=== PATIENT | male | born 1980 | race Caucasian/White ===

== ENCOUNTER → 2020-07-29 | Emergency (ER) | payer OTHER ==
[~2020-07-29] VITALS: Ht 175.3 cm; Wt 73.7 kg
[~2020-07-29] MED LIST: ACETAMINOPHEN 500 MG TABLET PO ONE; ALBUTEROL SULFATE HFA 90 MCG/PUFF 8 GM INHALER IH ONE; OLAN10TA3 PO; SERT100T12 PO; TRAZ-257 PO
[2020-07-29 20:26] LABS: BASOPHILS % (AUTO) 0.6 % (0.0-2.0); EOSINOPHILS % (AUTO) 3.9 % (1.0-6.0); HEMATOCRIT 39.5 % (41-53); HEMOGLOBIN 13.3 g/dL (13.5-17.5); LYMPHOCYTES # (AUTO) 2.7 K/uL (1.0-4.8); LYMPHOCYTES % (AUTO) 27.7 % (22.0-44.0); MEAN CORPUSCULAR HEMOGLOBIN 29.9 pg (26.0-34.0); MEAN CORPUSCULAR HGB CONC 33.6 G/dL (31.0-37.0); MEAN CORPUSCULAR VOLUME 89 fL (80-100); MONOCYTES # (AUTO) 0.8 K/uL (0.1-1.0); MONOCYTES % (AUTO) 7.9 % (2.0-9.0); NEUTROPHILS # (AUTO) 5.8 K/uL (1.8-7.7); NEUTROPHILS % (AUTO) 59.9 % (40.0-70.0); PLATELET COUNT (AUTO) 277 K/uL (150-450); RED BLOOD CELL COUNT(AUTO) 4.45 MIL/uL (4.50-5.90); RED CELL DISTRIBUTION WIDTH 13.7 % (11.5-14.5)
[2020-07-29 20:34] LABS: ANION GAP 6 mmol/L (8-16); CARBON DIOXIDE 27 mmol/L (22-29); CHLORIDE 105 mmol/L (98-107); CREATININE 0.93 mg/dL (0.60-1.30); GLOMERULAR FILTR. RATE CALC > 60 mL/min (>60); GLUCOSE,RANDOM 83 mg/dL (70-110); POTASSIUM 3.6 mmol/L (3.5-5.1); SODIUM SERUM 138 mmol/L (136-145); UREA NITROGEN, BLOOD 16 mg/dL (7-18)
[2020-07-29 20:40] LABS: ALANINE AMINOTRANSFERASE 64 U/L (12-78); ALBUMIN 3.3 g/dL (3.4-5.0); ALKALINE PHOSPHATASE 68 U/L (46-116); ASPARTATE AMINOTRANSFERASE 17 U/L (15-37); BILIRUBIN,TOTAL 0.2 mg/dL (0.1-1.0); CREATINE KINASE, TOTAL ONLY 24 U/L (39-308); TOTAL PROTEIN, SERUM 6.4 g/dL (6.4-8.2)
[2020-07-29 20:43] LABS: PROTHROMBIN TIME 10.4 SEC (9.4-11.6)
[2020-07-29 21:14] LABS: B-TYPE NATRIURETIC PEPTIDE 17 pg/mL (0-100)
[2020-07-30 06:00] VITALS: BP 96/67
== END | disposition home or self-care (01) ==
LOC: EMS 20:03
DX: R07.9 Chest pain, unspecified (principal); R45.851 Suicidal ideations; R06.02 Shortness of breath; F41.9 Anxiety disorder, unspecified; F32.9 Major depressive disorder, single episode, unspecified; J45.909 Unspecified asthma, uncomplicated; F17.210 Nicotine dependence, cigarettes, uncomplicated
CPT/HCPCS: 93005; 94640; J3535; 36415-L1; 36415-TC; 71045-TC

== ENCOUNTER 2020-07-30 07:35 | Inpatient (IN) | payer MEDICAID, OTHER ==
[~2020-07-30] VITALS: Ht 177.8 cm; Wt 75.2 kg
[~2020-07-30 07:35] MED LIST changes: -ACETAMINOPHEN 500 MG TABLET PO ONE; -ALBUTEROL SULFATE HFA 90 MCG/PUFF 8 GM INHALER IH ONE
[2020-07-30 10:10] LABS: AMPHET/METH SCREEN,URINE NEGATIVE (NEGATIVE); BARBITURATE SCREEN, URINE NEGATIVE (NEGATIVE); BENZODIAZEPINES SCREEN,URINE NEGATIVE (NEGATIVE); CANNABINOID SCREEN,URINE NEGATIVE (NEGATIVE); COCAINE SCREEN,URINE NEGATIVE (NEGATIVE); METHADONE SCREEN, URINE NEGATIVE (NEGATIVE); OPIATE SCREEN,URINE NEGATIVE (NEGATIVE)
[2020-07-30 10:11] LABS: PHENCYCLIDINE SCREEN,URINE NEGATIVE (NEGATIVE)
[2020-07-30 10:15] LABS: BASOPHILS % (AUTO) 0.5 % (0.0-2.0); EOSINOPHILS % (AUTO) 5.6 % (1.0-6.0); HEMATOCRIT 43.2 % (41-53); HEMOGLOBIN 14.5 g/dL (13.5-17.5); LYMPHOCYTES % (AUTO) 34.3 % (22.0-44.0); MEAN CORPUSCULAR HEMOGLOBIN 29.8 pg (26.0-34.0); MEAN CORPUSCULAR HGB CONC 33.6 G/dL (31.0-37.0); MEAN CORPUSCULAR VOLUME 89 fL (80-100); MONOCYTES # (AUTO) 0.4 K/uL (0.1-1.0); MONOCYTES % (AUTO) 7.4 % (2.0-9.0); NEUTROPHILS # (AUTO) 3.1 K/uL (1.8-7.7); NEUTROPHILS % (AUTO) 52.2 % (40.0-70.0); PLATELET COUNT (AUTO) 291 K/uL (150-450); RED BLOOD CELL COUNT(AUTO) 4.87 MIL/uL (4.50-5.90)
[2020-07-30 10:28] LABS: ANION GAP 3 mmol/L (8-16); CALCIUM, TOTAL 9.1 mg/dL (8.8-10.5); CARBON DIOXIDE 29 mmol/L (22-29); CHLORIDE 106 mmol/L (98-107); CREATININE 0.86 mg/dL (0.60-1.30); GLOMERULAR FILTR. RATE CALC > 60 mL/min (>60); GLUCOSE,RANDOM 100 mg/dL (70-110); POTASSIUM 3.9 mmol/L (3.5-5.1); SODIUM SERUM 138 mmol/L (136-145); UREA NITROGEN, BLOOD 9 mg/dL (7-18)
[2020-07-30 10:34] LABS: ALANINE AMINOTRANSFERASE 68 U/L (12-78); ALBUMIN 3.6 g/dL (3.4-5.0); ALKALINE PHOSPHATASE 77 U/L (46-116); ASPARTATE AMINOTRANSFERASE 18 U/L (15-37); BILIRUBIN,TOTAL 0.3 mg/dL (0.1-1.0)
[2020-07-30] MEDS ORDERED: ZOLPIDEM TARTRATE 10 MG TABLET PO PRN (11:30)
[2020-07-31 01:24] VITALS: BP 104/83
[2020-07-31] MEDS ORDERED: CloNIDine HCL 0.1 MG TABLET PO PRN (07:00)
[2020-07-31] MEDS ORDERED: MAGNESIUM HYDROXIDE SUSPENSION 30 ML UDCUP PO PRN (07:00)
[2020-07-31] MEDS ORDERED: PETROLATUM,WHITE 28 GM JELLY TP PRN (07:00)
[2020-07-31] MEDS ORDERED: ALBUTEROL SULFATE HFA 90 MCG/PUFF 8 GM INHALER IH PRN (07:00)
[2020-07-31] MEDS ORDERED: LOPERAMIDE HCL 2 MG CAPSULE PO PRN (07:00)
[2020-07-31] MEDS ORDERED: OMEPRAZOLE 20 MG CAPSULE PO PRN (07:00)
[2020-07-31] MEDS ORDERED: ONDANSETRON HCL 4 MG TABLET PO PRN (07:00)
[2020-07-31] MEDS ORDERED: DOCUSATE SODIUM 100 MG CAPSULE PO PRN (07:00)
[2020-07-31] MEDS ORDERED: BACITRACIN 28 GM OINTMENT TP PRN (07:00)
[2020-07-31] MEDS ORDERED: IBUPROFEN 600 MG TABLET PO PRN (07:00)
[2020-07-31] MEDS ORDERED: MAG HYDROX/AL HYDROX/SIMETH ES 30 ML SUSPENSION UDCUP PO PRN (07:00)
[2020-07-31] MEDS ORDERED: BENZOCAINE/MENTHOL LOZENGE PO PRN (07:00)
[2020-07-31 07:21] LABS: CHOL/HDL RATIO 3.2 (4.2-7.3)
[2020-07-31 12:16] VITALS: BP 132/80
[2020-07-31 18:15] VITALS: BP 120/78
[2020-07-31 18:31] VITALS: BP 113/64
[2020-08-01 04:00] VITALS: BP 119/69
[2020-08-01 08:00] VITALS: BP 110/58
[2020-08-01] MEDS: SERTRALINE HCL 50 MG TABLET PO SCH (10:51)
[2020-08-01 16:00] VITALS: BP 121/77
[2020-08-02] MEDS: SERTRALINE HCL 50 MG TABLET PO SCH (09:00)
[2020-08-02 09:20] VITALS: BP 99/69
[2020-08-02 17:43] VITALS: BP 99/72
[2020-08-02 18:16] VITALS: BP 101/72
[2020-08-02] MEDS: ACETAMINOPHEN 325 MG TABLET PO PRN (18:16)
[2020-08-03 08:00] VITALS: BP 117/67
[2020-08-03] MEDS: SERTRALINE HCL 50 MG TABLET PO SCH (09:25)
[2020-08-03] MEDS ORDERED: TraZODone HCL 50 MG TABLET PO PRN (10:15)
[2020-08-03] MEDS: OLANZapine 10 MG TABLET PO SCH (10:24)
[2020-08-03 16:50] VITALS: BP 100/63
[2020-08-04 08:00] VITALS: BP 111/68
[2020-08-04] MEDS: SERTRALINE HCL 50 MG TABLET PO SCH (09:34)
[2020-08-04] MEDS: OLANZapine 10 MG TABLET PO SCH (09:34)
[2020-08-04 16:37] VITALS: BP 129/79
[2020-08-04] MEDS: ACETAMINOPHEN 325 MG TABLET PO PRN (17:06)
[2020-08-04 17:36] VITALS: BP 130/80
[2020-08-05 08:00] VITALS: BP 110/67
[2020-08-05] MEDS: SERTRALINE HCL 50 MG TABLET PO SCH (10:04)
[2020-08-05] MEDS: OLANZapine 10 MG TABLET PO SCH (10:05)
[2020-08-05 16:16] VITALS: BP 116/67
[2020-08-06] MEDS: OLANZapine 10 MG TABLET PO SCH (09:30)
[2020-08-06] MEDS: LORazepam 2 MG TABLET PO PRN (09:30)
[2020-08-06] MEDS: SERTRALINE HCL 50 MG TABLET PO SCH (09:30)
[2020-08-06] MEDS: HALOPERIDOL 5 MG TABLET PO PRN (09:30)
[2020-08-06 09:49] VITALS: BP 121/79
[2020-08-06 19:26] VITALS: BP 108/67
[2020-08-07 09:00] VITALS: BP 121/77
[2020-08-07] MEDS: LORazepam 2 MG TABLET PO PRN (09:04)
[2020-08-07] MEDS: SERTRALINE HCL 100 MG TABLET PO SCH (09:04)
[2020-08-07] MEDS: OLANZapine 10 MG TABLET PO SCH (09:04)
[2020-08-07] MEDS: HALOPERIDOL 5 MG TABLET PO PRN (09:04)
[2020-08-07 16:00] VITALS: BP 106/64
[2020-08-08 09:00] VITALS: BP 119/74
[2020-08-08] MEDS: HALOPERIDOL 5 MG TABLET PO PRN (10:04)
[2020-08-08] MEDS: OLANZapine 10 MG TABLET PO SCH (10:04)
[2020-08-08] MEDS: SERTRALINE HCL 100 MG TABLET PO SCH (10:04)
[2020-08-08] MEDS: LORazepam 2 MG TABLET PO PRN (10:04)
[2020-08-08 17:16] VITALS: BP 118/87
[2020-08-09 08:00] VITALS: BP 114/70
[2020-08-09] MEDS: OLANZapine 10 MG TABLET PO SCH (10:18)
[2020-08-09] MEDS: SERTRALINE HCL 100 MG TABLET PO SCH (10:18)
[2020-08-09 19:16] VITALS: BP 112/72
[2020-08-10 09:18] VITALS: BP 128/77
[2020-08-10] MEDS: OLANZapine 10 MG TABLET PO SCH (11:17)
[2020-08-10] MEDS: SERTRALINE HCL 100 MG TABLET PO SCH (11:18)
[2020-08-10 16:25] VITALS: BP 120/73
[2020-08-10 18:56] VITALS: BP 116/68
[2020-08-10] MEDS: ACETAMINOPHEN 325 MG TABLET PO PRN (18:59)
[2020-08-11 09:28] VITALS: BP 107/55
[2020-08-11] MEDS: SERTRALINE HCL 100 MG TABLET PO SCH (09:38)
[2020-08-11] MEDS: OLANZapine 10 MG TABLET PO SCH (09:39)
[2020-08-11 16:20] VITALS: BP 131/75
[2020-08-11] MEDS: ACETAMINOPHEN 325 MG TABLET PO PRN (22:44)
[2020-08-12 01:35] VITALS: BP 100/68
[2020-08-12 08:56] VITALS: BP 107/57
[2020-08-12] MEDS: SERTRALINE HCL 100 MG TABLET PO SCH (09:07)
[2020-08-12] MEDS: OLANZapine 10 MG TABLET PO SCH (09:08)
[2020-08-12 16:54] VITALS: BP 99/58
[2020-08-13] MEDS: OLANZapine 10 MG TABLET PO SCH (08:35)
[2020-08-13] MEDS: SERTRALINE HCL 100 MG TABLET PO SCH (08:35)
[2020-08-13 09:52] VITALS: BP 104/56
[2020-08-13 16:26] VITALS: BP 99/55
[2020-08-14 08:16] VITALS: BP 109/64
[2020-08-14] MEDS: SERTRALINE HCL 100 MG TABLET PO SCH (09:09)
[2020-08-14] MEDS: OLANZapine 10 MG TABLET PO SCH (09:09)
[2020-08-14 16:28] VITALS: BP 110/67
[2020-08-15 08:00] VITALS: BP 118/72
[2020-08-15] MEDS: SERTRALINE HCL 100 MG TABLET PO SCH (08:46)
[2020-08-15] MEDS: OLANZapine 10 MG TABLET PO SCH (08:46)
[2020-08-15 17:14] VITALS: BP 106/59
[2020-08-15 17:48] VITALS: BP 122/70
[2020-08-15] MEDS: ACETAMINOPHEN 325 MG TABLET PO PRN (17:48)
[2020-08-16 08:00] VITALS: BP 97/55
[2020-08-16] MEDS: OLANZapine 10 MG TABLET PO SCH (09:11)
[2020-08-16] MEDS: SERTRALINE HCL 100 MG TABLET PO SCH (09:11)
[2020-08-16 17:14] VITALS: BP 99/67
[2020-08-16 21:42] VITALS: BP 105/70
[2020-08-16] MEDS: ACETAMINOPHEN 325 MG TABLET PO PRN (21:42)
[2020-08-17 08:00] VITALS: BP 122/72
[2020-08-17] MEDS: OLANZapine 10 MG TABLET PO SCH (09:27)
[2020-08-17] MEDS: SERTRALINE HCL 100 MG TABLET PO SCH (09:27)
[2020-08-17] MEDS ORDERED: OLAN10TA3 PO (14:44)
[2020-08-17 16:26] VITALS: BP 122/77
[2020-08-18 01:05] VITALS: BP 135/76
[2020-08-18 08:00] VITALS: BP 136/85
[2020-08-18] MEDS: OLANZapine 10 MG TABLET PO SCH (08:36)
[2020-08-18] MEDS: SERTRALINE HCL 100 MG TABLET PO SCH (08:36)
[2020-08-18 08:54] VITALS: BP 136/85
== END 2020-08-18 15:30 | disposition home or self-care (01) | DRG 750 ==
LOC: EMS 07:36 → 3EI 11:21 → UNDOADMIN 21:30 → 3EI 21:30
PROVIDERS: ADMIT Psychiatry & Neurology Psychiatry; ATTEND Psychiatry & Neurology Psychiatry
DX: F25.1 Schizoaffective disorder, depressive type (principal); J45.909 Unspecified asthma, uncomplicated; F17.210 Nicotine dependence, cigarettes, uncomplicated; R45.851 Suicidal ideations; Z79.899 Other long term (current) drug therapy; Z20.828 Contact with and (suspected) exposure to other viral communicable diseases
CPT/HCPCS: 87426; G0480; J3535